=== PATIENT | male | born 1990 | race Caucasian/White ===

== ENCOUNTER 2018-05-11 23:50 | Emergency (ER) | payer SELFPAY ==
[2018-05-12] MEDS: Lidocaine 1% 10 ML MDV INJECT ONE (00:40)
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
== END 2018-05-12 01:20 | disposition home or self-care (01) ==
LOC: JD.ED 23:50
DX: S01.111A Laceration without foreign body of right eyelid and periocular area, initial encounter (principal); Y04.0XXA Assault by unarmed brawl or fight, initial encounter
CPT/HCPCS: 12011; 99283; J2001; 99282